=== PATIENT | female | born 1985 | race Two or more races ===

== ENCOUNTER 2018-01-28 07:48 | Emergency (ER) | payer OTHER, SELFPAY ==
[~2018-01-28] VITALS: Ht 160 cm; Wt 65.8 kg
[~2018-01-28 07:48] MED LIST: ASPI81CH PO; CYAN500 PO; DOCU100 PO; ENOX40I SC; HYDACE5 PO; IBUP800 PO; OXYACE5T PO; PROACE100; RANI150 PO; RXLORA1 PO; Slow Release I160 MG; VALA500 PO; Verotin-Gr Cap1 EACH PO
[2018-01-28] MEDS ORDERED: ASPI81CH PO (08:17)
[2018-01-28] MEDS ORDERED: CYAN500 PO (08:17)
[2018-01-28 08:34] LABS: BASOPHILS ABSOLUTE AUTO 0.03 K/mm3 (0.00-0.23); BASOPHILS PERCENT AUTO 0 % (0-2); EOSINOPHILS PERCENT AUTO 0 % (0-6); Hematocrit 41.3 % (33.0-51.0); IMMATURE GRAN ABSOLUTE AUTO 0.03 K/mm3 (0.00-0.10); IMMATURE GRAN PERCENT AUTO 0 % (0-1); LYMPHOCYTES ABSOLUTE AUTO 0.69 K/mm3 (0.84-5.20); LYMPHOCYTES PERCENT AUTO 7 % (21-46); MONOCYTES ABSOLUTE AUTO 0.15 K/mm3 (0.16-1.47); MONOCYTES PERCENT AUTO 2 % (4-13); Mean Corpuscular HGB 28.1 pg (26.0-34.0); Mean Corpuscular HGB Conc 33.9 g/dL (31.5-36.5); Mean Corpuscular Volume 83 fL (80-100); Mean Platelet Volume 10.6 fL (9.1-12.4); NEUTROPHILS ABSOLUTE AUTO 9.09 K/mm3 (1.96-9.15); NEUTROPHILS PERCENT AUTO 91 % (41-73); Platelet Count 303 K/mm3 (150-400); RDW Coefficient Variation 13.2 % (11.7-14.2); RDW Standard Deviation 39.8 fL (35.1-46.3); Red Blood Cell Count 4.99 M/mm3 (3.80-5.20); White Blood Cell Count 9.99 K/mm3 (4.00-11.30)
[2018-01-28 08:48] LABS: Alanine Aminotransfer (ALT/SGP 19 U/L (12-78); Albumin, Blood 4.3 g/dL (3.4-5.0); Alk Phos 49 U/L (50-136); Anion Gap 12 mmol/L (6-16); Aspartate Aminotrans (AST/SGOT 14 U/L (12-37); Bilirubin, Total 0.6 mg/dL (0.1-1.0); Blood Urea Nitrogen 11 mg/dL (8-24); Bun/Creatinine Ratio 16.9 (12.0-20.0); CO2, Blood 22 mmol/L (21-32); Calcium, Blood 9.6 mg/dL (8.5-10.1); Chloride, Blood 105 mmol/L (98-108); Creatinine, Blood 0.65 mg/dL (0.40-1.00); Globulin, Blood 4.1 g/dL (2.2-4.0); Glomerular Filtration Rate >60 (60-); Glucose, Blood 133 mg/dL (70-99); Potassium, Blood 3.4 mmol/L (3.5-5.5); Sodium, Blood 139 mmol/L (136-145); Total Protein, Blood 8.4 g/dL (6.4-8.2)
[2018-01-28] MEDS ORDERED: Flagyl500 MG PO (09:50)
[2018-01-28] MEDS ORDERED: Cipro500 MG PO (09:50)
[2018-01-28 10:07] LABS: Source, Urine Clean Catch
[2018-01-28 10:13] LABS: Bilirubin, Urine Neg (Neg); Blood, Urine Neg (Neg); Glucose Qualitative, Urine Neg (Neg); Ketones, Urine 3+ (Neg); Leukocyte Esterase, Urine Neg (Neg); Nitrite, Urine Neg (Neg); Protein, Urine Neg (Neg); Specific Gravity, Urine 1.015 (1.003-1.022); Urobilinogen, Urine NORM (Normal)
[2018-01-28 10:27] LABS: Appearance, Urine Clear (Clear); Color, Urine Pale Yellow (P-Yellow)
[2018-01-28] MEDS ORDERED: Norco 5-325 Ta1 EACH PO (10:35)
== END 2018-01-28 10:50 | disposition home or self-care (01) ==
LOC: ER 07:48
PROVIDERS: Emergency Medicine
DX: K52.9 Noninfective gastroenteritis and colitis, unspecified (principal); Z87.891 Personal history of nicotine dependence; Z79.82 Long term (current) use of aspirin; Z79.899 Other long term (current) drug therapy
CPT/HCPCS: 36415; 74177; 80053; 81003; 81025; 83690; 85025; 96361; 96374; 96375; 99284; J1170; J2405; J7030; Q9967

== ENCOUNTER 2018-01-30 11:59 | Emergency (ER) | payer OTHER, SELFPAY ==
[~2018-01-30] VITALS: Ht 157.5 cm; Wt 65.8 kg
[~2018-01-30 11:59] MED LIST changes: +Cipro500 MG PO; +Flagyl500 MG PO; +Norco 5-325 Ta1 EACH PO
[2018-01-30 12:27] LABS: BASOPHILS ABSOLUTE AUTO 0.02 K/mm3 (0.00-0.23); BASOPHILS PERCENT AUTO 0 % (0-2); EOSINOPHILS ABSOLUTE AUTO 0.06 K/mm3 (0.00-0.68); EOSINOPHILS PERCENT AUTO 1 % (0-6); Hematocrit 38.4 % (33.0-51.0); Hemoglobin 12.3 g/dL (11.5-16.0); IMMATURE GRAN ABSOLUTE AUTO 0.01 K/mm3 (0.00-0.10); IMMATURE GRAN PERCENT AUTO 0 % (0-1); LYMPHOCYTES ABSOLUTE AUTO 1.64 K/mm3 (0.84-5.20); LYMPHOCYTES PERCENT AUTO 29 % (21-46); MONOCYTES ABSOLUTE AUTO 0.19 K/mm3 (0.16-1.47); MONOCYTES PERCENT AUTO 3 % (4-13); Mean Corpuscular HGB 27.6 pg (26.0-34.0); Mean Platelet Volume 10.6 fL (9.1-12.4); NEUTROPHILS ABSOLUTE AUTO 3.83 K/mm3 (1.96-9.15); NEUTROPHILS PERCENT AUTO 67 % (41-73); Platelet Count 256 K/mm3 (150-400); RDW Coefficient Variation 13.3 % (11.7-14.2); RDW Standard Deviation 41.5 fL (35.1-46.3); Red Blood Cell Count 4.45 M/mm3 (3.80-5.20); White Blood Cell Count 5.75 K/mm3 (4.00-11.30)
[2018-01-30 12:31] LABS: Mean Corpuscular Volume 86 fL (80-100)
[2018-01-30 12:44] LABS: Alanine Aminotransfer (ALT/SGP 17 U/L (12-78); Albumin, Blood 3.9 g/dL (3.4-5.0); Albumin/Globulin Ratio 1.1 (0.8-1.8); Alk Phos 43 U/L (50-136); Anion Gap 8 mmol/L (6-16); Aspartate Aminotrans (AST/SGOT 10 U/L (12-37); Bilirubin, Total 0.4 mg/dL (0.1-1.0); Blood Urea Nitrogen 5 mg/dL (8-24); Bun/Creatinine Ratio 8.7 (12.0-20.0); CO2, Blood 25 mmol/L (21-32); Calcium, Blood 8.9 mg/dL (8.5-10.1); Chloride, Blood 108 mmol/L (98-108); Creatinine, Blood 0.57 mg/dL (0.40-1.00); Globulin, Blood 3.6 g/dL (2.2-4.0); Glomerular Filtration Rate >60 (60-); Glucose, Blood 92 mg/dL (70-99); Potassium, Blood 3.8 mmol/L (3.5-5.5); Sodium, Blood 141 mmol/L (136-145); Total Protein, Blood 7.5 g/dL (6.4-8.2)
[2018-01-30 13:16] LABS: Bilirubin, Urine Neg (Neg); Blood, Urine Neg (Neg); Glucose Qualitative, Urine Neg (Neg); Ketones, Urine 2+ (Neg); Leukocyte Esterase, Urine Neg (Neg); Nitrite, Urine Neg (Neg); Protein, Urine Neg (Neg); Specific Gravity, Urine 1.005 (1.003-1.022); Urobilinogen, Urine NORM (Normal)
[2018-01-30 13:28] LABS: Appearance, Urine Clear (Clear); Color, Urine Yellow (P-Yellow)
[2018-01-30] MEDS ORDERED: Zofran Odt4 MG PO (14:43)
== END 2018-01-30 14:52 | disposition home or self-care (01) ==
LOC: ER 11:59
PROVIDERS: Internal Medicine
DX: A09 Infectious gastroenteritis and colitis, unspecified (principal); Z79.899 Other long term (current) drug therapy; Z79.82 Long term (current) use of aspirin
CPT/HCPCS: 36415; 80053; 81003; 81025; 83690; 85025; 96374; 96375; 99284; J1170; J1885; J2405; J7030

== ENCOUNTER 2019-08-19 07:47 | Day surgery (SDC) | payer BC, SELFPAY ==
[~2019-08-19] VITALS: Ht 157.5 cm; Wt 70.3 kg
[~2019-08-19 07:47] MED LIST changes: +CINNAMON PLUS1 EACH; +FAMO20; +Women's Daily1 EACH; +Zofran Odt4 MG PO
--- NOTE | 2019-08-19 08:18 | NUR ---
08/19/19 0818 Andrei Quach N 1 IV ATTEMPT LEFT HAND BY JONNA HOOD. SUCCESSFUL IV PLACED IN LEFT FA. PT TOW.
--- NOTE | 2019-08-19 09:35 | NUR ---
08/19/19 0935 Joby Kaiser SECOND NOVASURE DEVICE NEEDED THERE WAS A TECHNICAL PROBLEM WITH THE FIRST DEVICE. SECOND DEVICE FUNCTIONED WITHOUT ERROR.
== END 2019-08-19 11:15 | disposition home or self-care (01) ==
LOC: ORSCSDS 07:47
PROVIDERS: Obstetrics & Gynecology
PROC: 0UDB8ZX Extraction of Endometrium, Via Natural or Artificial Opening Endoscopic, Diagnostic (ICD-10-PCS; principal; 2019-08-19 09:00)
PROC: 0U5B8ZZ Destruction of Endometrium, Via Natural or Artificial Opening Endoscopic (ICD-10-PCS; principal; 2019-08-19 09:00)
DX: N92.0 Excessive and frequent menstruation with regular cycle (principal); D68.51 Activated protein C resistance; Z79.82 Long term (current) use of aspirin
CPT/HCPCS: 88305; A9270-GY; J0690; J1885; J2405; J2704; J3010; J7120

== ENCOUNTER 2019-10-27 13:35 | Day surgery (SDC) | payer BC ==
[~2019-10-27] VITALS: Ht 157.5 cm; Wt 69.8 kg
[~2019-10-27 13:35] MED LIST changes: -FAMO20; +FAMO20 PO
[2019-10-27] MEDS ORDERED: VALA500 PO (13:58)
[2019-10-27] MEDS ORDERED: ZYRTEC10 M2 PO (13:59)
--- NOTE | 2019-10-27 14:21 | NUR ---
10/27/19 1421 Hollie Aguila TIME OUT AT 1412. START TIME 1413. INJECTED WITH 2% LIDOCAINE WITH EPI 1:100,000. STOP TIME 1417.
== END 2019-10-27 15:30 | disposition home or self-care (01) ==
LOC: ORSCSDS 13:35
PROVIDERS: Orthopaedic Surgery
PROC: 01N54ZZ Release Median Nerve, Percutaneous Endoscopic Approach (ICD-10-PCS; principal; 2019-10-27 14:45)
DX: G56.01 Carpal tunnel syndrome, right upper limb (principal); K21.9 Gastro-esophageal reflux disease without esophagitis; Z87.891 Personal history of nicotine dependence; Z79.82 Long term (current) use of aspirin; Z79.899 Other long term (current) drug therapy
CPT/HCPCS: J0690; J2250; J2704; J3010; J7120

== ENCOUNTER → 2020-01-28 | Outpatient (CLI) | payer BC ==
[~2020-01-28] MED LIST changes: +ZYRTEC10 M2 PO
== END | disposition home or self-care (01) ==
LOC: LAB SHORT 15:52 → LAB EV 15:52
DX: R07.0 Pain in throat (principal)
CPT/HCPCS: 87081

== ENCOUNTER → 2020-02-17 | Outpatient (CLI) | payer BC ==
[2020-02-17 12:31] LABS: BASOPHILS ABSOLUTE AUTO 0.02 K/mm3 (0.00-0.23); BASOPHILS PERCENT AUTO 0 % (0-2); EOSINOPHILS PERCENT AUTO 0 % (0-6); Hemoglobin 13.1 g/dL (11.5-16.0); IMMATURE GRAN ABSOLUTE AUTO 0.03 K/mm3 (0.00-0.10); IMMATURE GRAN PERCENT AUTO 0 % (0-1); LYMPHOCYTES ABSOLUTE AUTO 0.38 K/mm3 (0.84-5.20); LYMPHOCYTES PERCENT AUTO 4 % (21-46); MONOCYTES ABSOLUTE AUTO 0.26 K/mm3 (0.16-1.47); MONOCYTES PERCENT AUTO 3 % (4-13); Mean Corpuscular HGB 31.1 pg (26.0-34.0); Mean Corpuscular HGB Conc 34.5 g/dL (31.5-36.5); Mean Corpuscular Volume 90 fL (80-100); Mean Platelet Volume 9.8 fL (9.1-12.4); NEUTROPHILS ABSOLUTE AUTO 7.93 K/mm3 (1.96-9.15); NEUTROPHILS PERCENT AUTO 92 % (41-73); Platelet Count 302 K/mm3 (150-400); RDW Coefficient Variation 12.3 % (11.7-14.2); RDW Standard Deviation 40.4 fL (35.1-46.3); Red Blood Cell Count 4.21 M/mm3 (3.80-5.20); White Blood Cell Count 8.62 K/mm3 (4.00-11.30)
[2020-02-17 12:38] LABS: Alanine Aminotransfer (ALT/SGP 31 U/L (12-78); Alk Phos 43 U/L (40-126); Anion Gap 10 mmol/L (6-16); Aspartate Aminotrans (AST/SGOT 22 U/L (12-37); Bilirubin, Total 0.7 mg/dL (0.1-1.0); Blood Urea Nitrogen 14 mg/dL (8-24); Bun/Creatinine Ratio 19.7 (12.0-20.0); CO2, Blood 27 mmol/L (21-32); Calcium, Blood 9.5 mg/dL (8.5-10.1); Chloride, Blood 104 mmol/L (98-108); Creatinine, Blood 0.71 mg/dL (0.40-1.00); Globulin, Blood 3.9 g/dL (2.2-4.0); Glomerular Filtration Rate >60 (60-); Glucose, Blood 143 mg/dL (70-99); Potassium, Blood 3.7 mmol/L (3.5-5.5); Sodium, Blood 141 mmol/L (136-145); Total Protein, Blood 7.9 g/dL (6.4-8.2)
== END ==
LOC: LAB EV 12:22 → LAB SHORT 12:22
PROVIDERS: Nurse Practitioner
DX: R10.9 Unspecified abdominal pain (principal)
CPT/HCPCS: 80053; 83690; 85025

== ENCOUNTER → 2021-01-02 | Outpatient (CLI) | payer OTHER ==
[2021-01-04 14:13] LABS: CORONAVIRUS (COVID19) CSH-NRL Negative (Negative)
== END ==
LOC: PLD 17:48 → LAB SHORT 17:48
PROVIDERS: Nurse Practitioner Family
DX: Z20.822 Contact with and (suspected) exposure to COVID-19 (principal)
CPT/HCPCS: U0003

== ENCOUNTER 2024-08-25 11:33 | Day surgery (SDC) | payer OTHER ==
[2024-08-25] VITALS (11 sets, daily range): BP systolic 113–130; BP diastolic 59–87
[~2024-08-25] VITALS: Ht 157.5 cm; Wt 81.6 kg
[~2024-08-25 11:33] MED LIST changes: +CeFAZolin Sodium 2,000 MG in NS 100 ML IV SCH; +DULCOLAX400 MG/5 M PO; +IBU800 MG PO; +Lactated Ringer's 1,000 ML IV SCH; +PROM25 PO; +Percocet 5-3251 EACH PO; +SENN187 PO; +SIME80CH PO; +VITAMIN B125000 MC1 PO
--- NOTE | 2024-08-25 12:06 | NUR ---
Ambulatory in Day Surgery. History, Chart, Medications and Allergies reviewed before start of procedure. Lungs clear T/O to Auscultation. Patient confirms NPO status and agrees with scheduled surgery. Pre-Op teaching done. Pt verbalizes understanding. Patient States Post-Procedure ride home has been arranged. PT BELONGINGS PLACED [facility]ATH [facility] FOR [facility]AFEK[facility].
[2024-08-25] MEDS ORDERED: Bupivacaine 0.5% HCl 5 MG/ML 30MLVIAL ONE (12:45)
[2024-08-25] MEDS ORDERED: Sugammadex Sodium 200 MG/2ML SDV (100 MG/ML) ONE (12:56)
[2024-08-25] MEDS ORDERED: Rocuronium Bromide 10 MG/ML 5ML Injection IV ONE (12:56)
[2024-08-25] MEDS ORDERED: FentaNYL Citrate 50 MCG/ML 2 ML Injection ONE ×3 (12:56→14:55)
[2024-08-25] MEDS ORDERED: propofoL 20 ML IV ONE (12:56)
[2024-08-25] MEDS ORDERED: Metoclopramide HCl 5MG / ML 2ML Vial ONE (13:20)
[2024-08-25] MEDS ORDERED: Ondansetron HCl 2 MG / ML 2ML Vial ONE (13:20)
[2024-08-25] MEDS ORDERED: Dexamethasone Sod Phos 10 MG/ML 1ML VIAL ONE (13:20)
[2024-08-25] MEDS ORDERED: Ketorolac Tromethamine 30mg Vial ONE (14:35)
--- NOTE | 2024-08-25 15:32 | NUR ---
PT INTO STEP. A&OX4. REPORTS 3/10 ABDOMINAL PAIN. EXOFEN TO INCISION SITE X 3 C/D/I. PT TOLERATING CLEAR LIQUIDS WITHOUT DIFFICULTY.
[2024-08-25] MEDS ORDERED: OxyCODONE 5 mg/Acetamin 325 mg TABLET PO PRN (15:35)
--- NOTE | 2024-08-25 16:31 | NUR ---
Discharge instructions reviewed with patient. Patient verbalizes understanding. Copy given to patient to take home. Dressings c/d/i. Prescriptions pre filled and ready at home. Patient States Post-Procedure ride home has been arranged. Discharged via wheelchair to private car for ride home.
== END 2024-08-25 16:30 | disposition home or self-care (01) ==
LOC: ORSCMMR 11:33 → ORD 12:30 → ORSCMMR 13:00
PROVIDERS: Obstetrics & Gynecology
PROC: 0U504ZZ Destruction of Right Ovary, Percutaneous Endoscopic Approach (ICD-10-PCS; principal; 2024-08-25 13:00)
PROC: 0U5F4ZZ Destruction of Cul-de-sac, Percutaneous Endoscopic Approach (ICD-10-PCS; principal; 2024-08-25 13:00)
DX: N80.9 Endometriosis, unspecified (principal); R10.2 Pelvic and perineal pain; N83.291 Other ovarian cyst, right side; N83.11 Corpus luteum cyst of right ovary; D68.51 Activated protein C resistance; F41.8 Other specified anxiety disorders; Z79.899 Other long term (current) drug therapy
CPT/HCPCS: 88305; A9270; J0690; J1100; J1885; J2405; J2704; J2765; J3010; J7120

== ENCOUNTER → 2025-02-28 | Outpatient (CLI) | payer OTHER ==
[~2025-02-28] MED LIST changes: -CeFAZolin Sodium 2,000 MG in NS 100 ML IV SCH; -Lactated Ringer's 1,000 ML IV SCH
[2025-02-28 19:01] LABS: BASOPHILS ABSOLUTE AUTO 0.03 K/mm3 (0.00-0.23); BASOPHILS PERCENT AUTO 1 % (0-2); EOSINOPHILS ABSOLUTE AUTO 0.13 K/mm3 (0.00-0.68); EOSINOPHILS PERCENT AUTO 3 % (0-6); Hemoglobin 12.3 g/dL (11.5-16.0); IMMATURE GRAN ABSOLUTE AUTO 0.03 K/mm3 (0.00-0.10); IMMATURE GRAN PERCENT AUTO 1 % (0-1); LYMPHOCYTES ABSOLUTE AUTO 1.47 K/mm3 (0.84-5.20); LYMPHOCYTES PERCENT AUTO 28 % (21-46); MONOCYTES ABSOLUTE AUTO 0.44 K/mm3 (0.16-1.47); MONOCYTES PERCENT AUTO 8 % (4-13); Mean Corpuscular HGB 31.3 pg (26.0-34.0); Mean Corpuscular HGB Conc 33.2 g/dL (31.5-36.5); Mean Corpuscular Volume 94 fL (80-100); Mean Platelet Volume 10.3 fL (9.1-12.4); NEUTROPHILS ABSOLUTE AUTO 3.17 K/mm3 (1.96-9.15); NEUTROPHILS PERCENT AUTO 60 % (41-73); Platelet Count 242 K/mm3 (150-400); RDW Coefficient Variation 11.7 % (11.7-14.2); RDW Standard Deviation 40.5 fL (35.1-46.3); Red Blood Cell Count 3.93 M/mm3 (3.80-5.20); White Blood Cell Count 5.27 K/mm3 (4.00-11.30)
[2025-02-28 19:15] LABS: Albumin, Blood 4.4 g/dL (3.4-5.0); Albumin/Globulin Ratio 1.3 (0.8-1.8); Bilirubin, Total 0.5 mg/dL (0.1-1.0); Bun/Creatinine Ratio 24.1 (12.0-20.0); Calcium, Blood 9.8 mg/dL (8.5-10.1); Creatinine, Blood 0.79 mg/dL (0.40-1.00); Globulin, Blood 3.4 g/dL (2.2-4.0); Potassium, Blood 3.7 mmol/L (3.5-5.5); Total Protein, Blood 7.8 g/dL (6.4-8.2)
== END ==
LOC: LAB SHORT 18:55 → LAB 18:55
PROVIDERS: Chiropractor
DX: R10.13 Epigastric pain (principal)
CPT/HCPCS: 80053; 83690; 84484; 85025

== ENCOUNTER 2025-04-04 07:17 | Day surgery (SDC) | payer OTHER ==
[~2025-04-04] VITALS: Ht 157.5 cm; Wt 74.2 kg
[2025-04-04 10:17] VITALS: BP 96/62
== END 2025-04-04 10:12 | disposition home or self-care (01) ==
LOC: ORSCSDS 07:17
PROC: 0DB98ZX Excision of Duodenum, Via Natural or Artificial Opening Endoscopic, Diagnostic (ICD-10-PCS; principal; 2025-04-04)
PROC: 0DB58ZX Excision of Esophagus, Via Natural or Artificial Opening Endoscopic, Diagnostic (ICD-10-PCS; principal; 2025-04-04)
PROC: 0DB78ZX Excision of Stomach, Pylorus, Via Natural or Artificial Opening Endoscopic, Diagnostic (ICD-10-PCS; principal; 2025-04-04)
PROC: 0DBN8ZX Excision of Sigmoid Colon, Via Natural or Artificial Opening Endoscopic, Diagnostic (ICD-10-PCS; principal; 2025-04-04)
DX: R19.4 Change in bowel habit (principal); R10.9 Unspecified abdominal pain; K21.9 Gastro-esophageal reflux disease without esophagitis; K29.70 Gastritis, unspecified, without bleeding; Z86.0100 Personal history of colon polyps, unspecified; K63.5 Polyp of colon; K44.9 Diaphragmatic hernia without obstruction or gangrene; K64.8 Other hemorrhoids

== ENCOUNTER → 2025-07-27 | Outpatient (CLI) | payer OTHER | LOC: LAB SHORT 12:17 → LAB 12:17 | DX: M79.605 Pain in left leg (principal) | CPT/HCPCS: 85379 ==